=== PATIENT | female | born 1980 | race Two or more races ===

== ENCOUNTER 2019-05-26 14:46 | Observation (INO) | payer MEDICAID ==
[~2019-05-26] VITALS: Ht 160 cm; Wt 78.0 kg
[2019-05-26] MEDS ORDERED: PREN1TAB78 MT (15:27)
== END 2019-05-26 17:40 | disposition home or self-care (01) ==
LOC: 8 EST LDRP 14:46
PROVIDERS: ADMIT Obstetrics & Gynecology; ATTEND Obstetrics & Gynecology
DX: O62.9 Abnormality of forces of labor, unspecified (principal); O46.93 Antepartum hemorrhage, unspecified, third trimester; Z3A.38 38 weeks gestation of pregnancy
CPT/HCPCS: 76805; 99281; G0378

== ENCOUNTER 2019-05-27 03:12 | Inpatient (IN) | payer MEDICAID ==
[~2019-05-27] VITALS: Ht 160 cm; Wt 78.0 kg
[~2019-05-27 03:12] MED LIST: PREN1TAB78 MT
[2019-05-27] MEDS ORDERED: DEXT 5%/LR + PITOCIN 20UNITS/L 1,000 ML IV SCH ×2 (03:56→05:32)
[2019-05-27] MEDS ORDERED: LACTATED RINGERS 500ML 500 ML IV SCH (03:56)
[2019-05-27] MEDS ORDERED: LIDOCAINE HCL 1% 20ML VIAL (Pyxis) INJ INFIL SCH (04:00)
[2019-05-27] MEDS ORDERED: BUTORPHANOL TARTRATE 2 MG/ML VIAL IV PRN (04:00)
[2019-05-27] MEDS ORDERED: NALOXONE HCL 0.4 MG/ML 1ML VIAL IM PRN (04:00)
[2019-05-27] MEDS ORDERED: CARBOPROST TROMETHAMINE 250 MCG/ML AMPUL IM PRN (04:00)
[2019-05-27] MEDS ORDERED: MISOPROSTOL 100MCG TABLET VG SCH (04:00)
[2019-05-27] MEDS ORDERED: METHYLERGONOVINE MALEATE 0.2 MG/ML IM PRN (04:00)
[2019-05-27] MEDS ORDERED: PENICILLIN G POTASSIUM 5 MMU in DEXT 5% WATER 100 ML IV SCH (04:00)
[2019-05-27 05:13] LABS: CLARITY URINE CLEAR (CLEAR); COLOR URINE YELLOW (YELLOW); KETONES URINE NEGATIVE (NEGATIVE); LEUKOCYTE ESTERASE URINE TRACE (NEGATIVE); NITRITE URINE NEGATIVE (NEGATIVE); OCCULT BLOOD URINE 2+ (NEGATIVE); PH URINE 6.5 (4.5-8.0); PROTEIN URINE NEGATIVE (NEGATIVE); SPECIFIC GRAVITY URINE 1.004 (1.005-1.030); UROBILINOGEN URINE 0.2 E.U./dL (0.2-1.0)
[2019-05-27 05:15] LABS: BASOPHILS % 0.2 % (0.0-2.0); EOSINOPHILS % 0.5 % (0.0-5.0); HEMOGLOBIN. 11.1 g/dL (12.0-16.0); LYMPHOCYTES % 22.2 % (20.0-50.0); MEAN CORPUSCULAR HEMOGLOBIN 27.9 pg (28.0-32.0); MEAN CORPUSCULAR VOLUME 83.2 fL (81.0-99.0); MEAN PLATELET VOLUME 9.5 fl (7.4-10.4); MONOCYTES % 4.6 % (2.0-8.0); NEUTROPHILS % 72.5 % (40.0-76.0); PLATELET 185 x1000/uL (130-400); RED BLOOD CELL COUNT 3.97 mill/uL (4.2-5.4); RED CELL DISTRIBUTION WIDTH 14.3 % (11.6-14.6)
[2019-05-27 05:39] LABS: INR 0.9; PARTIAL THROMBOPLASTIN TIME 26.8 sec (23.4-31.0); PROTHROMBIN TIME 9.7 sec (9.6-11.0)
[2019-05-27] MEDS ORDERED: BISACODYL 10MG SUPP PR PRN (05:45)
[2019-05-27] MEDS ORDERED: LANOLIN OINT 7GM TUBE TOP PRN (05:45)
[2019-05-27] MEDS ORDERED: ACETAMINOPHEN WITH CODEINE 300/30MG TABLET PO PRN (05:45)
[2019-05-27] MEDS ORDERED: HEMORRHOIDAL SUPP PR PRN (05:45)
[2019-05-27] MEDS ORDERED: RHO(D) IMMUNE GLOBULIN 300 MCG/SYR IM PRN (05:45)
[2019-05-27] MEDS ORDERED: GLYCERIN/WITCH HAZEL LEAF MEDICATED PAD TOP PRN (05:45)
[2019-05-27] MEDS ORDERED: IBUPROFEN 400MG TABLET PO PRN (05:45)
[2019-05-27 06:02] LABS: *AMPHETAMINES SCREEN URINE NEGATIVE (NEGATIVE); *BARBITURATES SCREEN URINE NEGATIVE (NEGATIVE); *BENZODIAZEPINES SCREEN URINE NEGATIVE (NEGATIVE)
[2019-05-27 06:03] LABS: *COCAINE SCREEN URINE NEGATIVE (NEGATIVE); METHADONE URINE SCREEN NEGATIVE (NEGATIVE); OPIATES URINE SCREEN NEGATIVE (NEGATIVE)
[2019-05-27 06:04] LABS: CANNABINOID URINE SCREEN NEGATIVE (NEGATIVE); PHENCYCLIDINE URINE SCREEN NEGATIVE (NEGATIVE)
[2019-05-27 06:20] LABS: HEPATITIS B SURFACE ANTIGEN NEGATIVE
[2019-05-27 07:55] VITALS: BP 115/69
[2019-05-27] MEDS ORDERED: PENICILLIN G POTASSIUM 2.5 MMU in DEXTROSE 5% WATER 50 ML IV SCH (08:00)
[2019-05-27] MEDS: MAGNESIUM/ALUMINUM HYDROXIDE/SIMETHICONE 30ML UDC PO SCH ×4 (08:23→21:19)
[2019-05-27] MEDS: SIMETHICONE 80MG TABLET CHEW PO SCH ×4 (08:23→21:20)
[2019-05-27] MEDS: PRENATAL VIT/FE FUMARATE/FA TABLET PO SCH (08:49)
[2019-05-27 08:55] VITALS: BP 110/62
[2019-05-27] MEDS: ACETAMINOPHEN WITH CODEINE 300/30MG TABLET PO PRN (15:22)
[2019-05-27 15:28] VITALS: BP 114/63
[2019-05-27] MEDS: DOCUSATE SODIUM 100MG CAPSULE PO SCH (21:18)
[2019-05-28 07:27] LABS: BASOPHILS % 0.3 % (0.0-2.0); EOSINOPHILS % 1.3 % (0.0-5.0); HEMATOCRIT. 31.4 % (36.0-48.0); HEMOGLOBIN. 10.6 g/dL (12.0-16.0); LYMPHOCYTES % 31.8 % (20.0-50.0); MEAN CORPUSCULAR HEMOGLOBIN 28.3 pg (28.0-32.0); MEAN CORPUSCULAR VOLUME 84.2 fL (81.0-99.0); MEAN PLATELET VOLUME 9.7 fl (7.4-10.4); MONOCYTES % 4.7 % (2.0-8.0); NEUTROPHILS % 61.9 % (40.0-76.0); PLATELET 172 x1000/uL (130-400); RED BLOOD CELL COUNT 3.73 mill/uL (4.2-5.4); RED CELL DISTRIBUTION WIDTH 14.4 % (11.6-14.6)
[2019-05-28 08:00] VITALS: BP 113/70
[2019-05-28] MEDS: FERROUS SULFATE 325MG TABLET PO SCH ×3 (08:43→17:43)
[2019-05-28] MEDS: PRENATAL VIT/FE FUMARATE/FA TABLET PO SCH (08:43)
[2019-05-28] MEDS: SIMETHICONE 80MG TABLET CHEW PO SCH ×4 (08:43→21:38)
[2019-05-28] MEDS: MAGNESIUM/ALUMINUM HYDROXIDE/SIMETHICONE 30ML UDC PO SCH ×4 (08:43→21:39)
[2019-05-28] MEDS: ACETAMINOPHEN WITH CODEINE 300/30MG TABLET PO PRN (14:53)
[2019-05-28 14:59] VITALS: BP 108/61
[2019-05-28 19:50] VITALS: BP 105/61
[2019-05-28] MEDS: DOCUSATE SODIUM 100MG CAPSULE PO SCH (21:38)
[2019-05-29 04:10] VITALS: BP 102/50
[2019-05-29] MEDS ORDERED: IBUP-2028 PO (07:11)
[2019-05-29] MEDS ORDERED: FERR325T23 PO (07:11)
[2019-05-29 07:45] VITALS: BP 110/78
== END 2019-05-29 11:05 | disposition home or self-care (01) | DRG 560 ==
LOC: OBSVTOIN 03:12 → 8 EST LDRP 03:12 → 8EST 08:23
PROVIDERS: ADMIT Obstetrics & Gynecology; ATTEND Obstetrics & Gynecology
PROC: 10E0XZZ Delivery of Products of Conception, External Approach (ICD-10-PCS; principal; 2019-05-27)
DX: O99.02 Anemia complicating childbirth (principal); D64.9 Anemia, unspecified; Z3A.38 38 weeks gestation of pregnancy; Z37.0 Single live birth
CPT/HCPCS: 36415; 80305; 81003; 85025; 86592; 86703; 86762; 86850; 86900; 87340; 99281; G0378; J0595; J2540; J2590; J3490; J7060

== ENCOUNTER 2021-05-08 16:26 | Emergency (ER) | payer MEDICAID ==
[~2021-05-08] VITALS: Ht 157.5 cm; Wt 68.0 kg
[~2021-05-08 16:26] MED LIST changes: +FERR325T23 PO; +IBUP-2028 PO
[2021-05-08 17:01] VITALS: BP 134/85
[2021-05-08] MEDS ORDERED: VISCOUS LIDOCAINE 2% 15 ML UDC PO STA (17:02)
[2021-05-08] MEDS ORDERED: MAGNESIUM/ALUMINUM HYDROXIDE/SIMETHICONE 30ML UDC PO STA (17:02)
[2021-05-08] MEDS ORDERED: METOCLOPRAMIDE HCL 10MG/2ML VIAL IV STA (17:02)
[2021-05-08 18:30] LABS: BASOPHILS % 0.4 % (0.0-2.0); EOSINOPHILS % 0.7 % (0.0-5.0); HEMATOCRIT. 41.6 % (36.0-48.0); HEMOGLOBIN. 13.7 g/dL (12.0-16.0); MEAN CORPUSCULAR HEMOGLOBIN 29.1 pg (28.0-32.0); MEAN CORPUSCULAR VOLUME 88.5 fL (81.0-99.0); MEAN PLATELET VOLUME 8.4 fl (7.4-10.4); MONOCYTES % 3.7 % (2.0-8.0); NEUTROPHILS % 71.2 % (40.0-76.0); PLATELET 290 x1000/uL (130-400); RED CELL DISTRIBUTION WIDTH 12.8 % (11.6-14.6)
[2021-05-08 18:36] LABS: CHLORIDE 106 mEq/L (98-107)
[2021-05-08] MEDS ORDERED: ACETAMINOPHEN 325MG TABLET PO ONE (23:45)
[2021-05-09 00:04] LABS: CLARITY URINE CLEAR (CLEAR); COLOR URINE DARK YELLOW (YELLOW); KETONES URINE 2+ (NEGATIVE); LEUKOCYTE ESTERASE URINE 1+ (NEGATIVE); NITRITE URINE NEGATIVE (NEGATIVE); OCCULT BLOOD URINE NEGATIVE (NEGATIVE); PROTEIN URINE NEGATIVE (NEGATIVE); SPECIFIC GRAVITY URINE 1.018 (1.005-1.030); UROBILINOGEN URINE 0.2 E.U./dL (0.2-1.0)
[2021-05-09] MEDS ORDERED: CEPHALEXIN 250MG CAPSULE PO ONE (01:45)
[2021-05-09] MEDS ORDERED: CEPH500T MT (02:09)
== END 2021-05-09 02:44 | disposition home or self-care (01) ==
LOC: ER 16:26
DX: O26.891 Other specified pregnancy related conditions, first trimester (principal); N12 Tubulo-interstitial nephritis, not specified as acute or chronic; Z3A.09 9 weeks gestation of pregnancy
CPT/HCPCS: 36415; 71045; 76705; 76801; 80053; 81003; 81025; 83880; 84484; 85025; 93005; 99285

== ENCOUNTER 2021-09-19 18:16 | Emergency (ER) | payer MEDICAID ==
[~2021-09-19] VITALS: Ht 157.5 cm; Wt 77.9 kg
[~2021-09-19 18:16] MED LIST changes: +CEPH500T MT
[2021-09-19 19:25] VITALS: BP 132/73
[2021-09-19 20:07] LABS: CHLORIDE 108 mEq/L (98-107)
[2021-09-19 20:13] LABS: BASOPHILS % 0.1 % (0.0-2.0); EOSINOPHILS % 0.4 % (0.0-5.0); HEMATOCRIT. 32.4 % (36.0-48.0); HEMOGLOBIN. 10.7 g/dL (12.0-16.0); LYMPHOCYTES % 11.5 % (20.0-50.0); MEAN CORPUSCULAR HEMOGLOBIN 27.1 pg (28.0-32.0); MEAN CORPUSCULAR VOLUME 82.4 fL (81.0-99.0); MEAN PLATELET VOLUME 9.1 fl (7.4-10.4); MONOCYTES % 6.2 % (2.0-8.0); NEUTROPHILS % 81.8 % (40.0-76.0); PLATELET 213 x1000/uL (130-400); RED BLOOD CELL COUNT 3.93 mill/uL (4.2-5.4); RED CELL DISTRIBUTION WIDTH 13.5 % (11.6-14.6)
[2021-09-19 20:28] LABS: CLARITY URINE CLOUDY (CLEAR); COLOR URINE YELLOW (YELLOW); KETONES URINE NEGATIVE (NEGATIVE); LEUKOCYTE ESTERASE URINE 3+ (NEGATIVE); NITRITE URINE NEGATIVE (NEGATIVE); OCCULT BLOOD URINE TRACE (NEGATIVE); PROTEIN URINE NEGATIVE (NEGATIVE); SPECIFIC GRAVITY URINE 1.007 (1.005-1.030); UROBILINOGEN URINE 0.2 E.U./dL (0.2-1.0)
[2021-09-19] MEDS ORDERED: SODIUM CHLORIDE 0.9% 1,000 ML IV ONE (20:30)
[2021-09-19 20:32] LABS: B-HCG QUANTITATIVE 16214 mIU/mL (<3)
[2021-09-19] MEDS ORDERED: CEPHALEXIN 250MG CAPSULE PO ONE (22:15)
[2021-09-19] MEDS ORDERED: CEPH250C2 MT (22:18)
== END 2021-09-19 22:41 | disposition home or self-care (01) ==
LOC: ER 18:26
DX: N39.0 Urinary tract infection, site not specified (principal)
CPT/HCPCS: 36415; 80053; 81003; 84702; 85025; 86850; 86900; 87426; 96360; 99283

== ENCOUNTER 2021-12-08 15:28 | Inpatient (IN) | payer MEDICAID, OTHER ==
[~2021-12-08] VITALS: Ht 165.1 cm; Wt 88.5 kg
[~2021-12-08 15:28] MED LIST changes: +CEPH250C2 MT
[2021-12-08] MEDS ORDERED: LACTATED RINGERS 1,000 ML IV SCH (16:30)
[2021-12-08] MEDS ORDERED: METHYLERGONOVINE MALEATE 0.2 MG/ML IM PRN (16:30)
[2021-12-08] MEDS ORDERED: LIDOCAINE HCL 1% 20ML VIAL (Pyxis) INJ INFIL SCH (16:30)
[2021-12-08] MEDS ORDERED: OXYTOCIN 30 UNITS/500ML NS PMX 500 ML IV SCH (16:45)
[2021-12-08] MEDS ORDERED: RHO(D) IMMUNE GLOBULIN 300 MCG/SYR IM PRN (16:45)
[2021-12-08] MEDS ORDERED: LANOLIN OINT 7GM TUBE TOP PRN (16:45)
[2021-12-08] MEDS ORDERED: GLYCERIN/WITCH HAZEL LEAF MEDICATED PAD TOP PRN (16:45)
[2021-12-08] MEDS ORDERED: OXYCODONE HCL/ACETAMINOPHEN 5/325MG TABLET PO PRN (16:45)
[2021-12-08] MEDS ORDERED: HEMORRHOIDAL SUPP PR PRN (16:45)
[2021-12-08] MEDS ORDERED: DIPHENHYDRAMINE 25MG CAPSULE PO PRN (16:45)
[2021-12-08] MEDS ORDERED: BISACODYL 10MG SUPP PR PRN (16:45)
[2021-12-08] MEDS ORDERED: IBUPROFEN 400MG TABLET PO PRN (16:45)
[2021-12-08] MEDS: OXYTOCIN 30 UNITS/500ML NS PMX 500 ML IV SCH ×2 (17:03→17:05)
[2021-12-08 17:12] LABS: CLARITY URINE CLEAR (CLEAR); COLOR URINE YELLOW (YELLOW); KETONES URINE 2+ (NEGATIVE); LEUKOCYTE ESTERASE URINE TRACE (NEGATIVE); NITRITE URINE POSITIVE (NEGATIVE); OCCULT BLOOD URINE 1+ (NEGATIVE); PROTEIN URINE 2+ (NEGATIVE); SPECIFIC GRAVITY URINE 1.019 (1.005-1.030)
[2021-12-08 17:14] LABS: BASOPHILS % 0.1 % (0.0-2.0); EOSINOPHILS % 0.3 % (0.0-5.0); HEMATOCRIT. 31.7 % (36.0-48.0); HEMOGLOBIN. 9.8 g/dL (12.0-16.0); LYMPHOCYTES % 17.4 % (20.0-50.0); MEAN CORPUSCULAR HEMOGLOBIN 22.6 pg (28.0-32.0); MEAN CORPUSCULAR VOLUME 72.8 fL (81.0-99.0); MEAN PLATELET VOLUME 9.6 fl (7.4-10.4); MONOCYTES % 4.2 % (2.0-8.0); PLATELET 215 x1000/uL (130-400); RED BLOOD CELL COUNT 4.35 mill/uL (4.2-5.4)
[2021-12-08 17:23] LABS: INR 0.9; PARTIAL THROMBOPLASTIN TIME 26.7 sec (23.4-31.0); PROTHROMBIN TIME 10.1 sec (9.6-11.0)
[2021-12-08 17:26] LABS: *AMPHETAMINES SCREEN URINE NEGATIVE (NEGATIVE); *BARBITURATES SCREEN URINE NEGATIVE (NEGATIVE); *BENZODIAZEPINES SCREEN URINE NEGATIVE (NEGATIVE); *COCAINE SCREEN URINE NEGATIVE (NEGATIVE); CANNABINOID URINE SCREEN NEGATIVE (NEGATIVE); METHADONE URINE SCREEN NEGATIVE (NEGATIVE); OPIATES URINE SCREEN NEGATIVE (NEGATIVE); PHENCYCLIDINE URINE SCREEN NEGATIVE (NEGATIVE)
[2021-12-08 17:58] LABS: HEPATITIS B SURFACE ANTIGEN NEGATIVE
[2021-12-08 20:00] VITALS: BP 132/86
[2021-12-08] MEDS: MAGNESIUM/ALUMINUM HYDROXIDE/SIMETHICONE 30ML UDC PO SCH (21:07)
[2021-12-08] MEDS: SIMETHICONE 80MG TABLET CHEW PO SCH (21:07)
[2021-12-08] MEDS: IBUPROFEN 800MG TABLET PO PRN (21:08)
[2021-12-08] MEDS: DOCUSATE SODIUM 100MG CAPSULE PO SCH (21:08)
[2021-12-09 04:48] VITALS: BP 115/70
[2021-12-09 08:00] VITALS: BP 110/62
[2021-12-09] MEDS: IBUPROFEN 800MG TABLET PO PRN ×2 (09:38→17:51)
[2021-12-09] MEDS: NITROFURANTOIN 100MG M/M CAPSULE PO SCH ×2 (09:38→21:31)
[2021-12-09] MEDS: PRENATAL VIT/FE FUMARATE/FA TABLET PO SCH (09:39)
[2021-12-09] MEDS: FERROUS SULFATE 325MG TABLET PO SCH ×2 (09:39→17:53)
[2021-12-09] MEDS: MAGNESIUM/ALUMINUM HYDROXIDE/SIMETHICONE 30ML UDC PO SCH ×3 (09:39→21:26)
[2021-12-09 11:36] LABS: BASOPHILS % 0.3 % (0.0-2.0); EOSINOPHILS % 0.2 % (0.0-5.0); HEMATOCRIT. 28.5 % (36.0-48.0); HEMOGLOBIN. 9.1 g/dL (12.0-16.0); LYMPHOCYTES % 17.5 % (20.0-50.0); MEAN CORPUSCULAR HEMOGLOBIN 23.2 pg (28.0-32.0); MEAN CORPUSCULAR VOLUME 72.4 fL (81.0-99.0); MEAN PLATELET VOLUME 9.8 fl (7.4-10.4); MONOCYTES % 3.6 % (2.0-8.0); NEUTROPHILS % 78.4 % (40.0-76.0); PLATELET 182 x1000/uL (130-400); RED BLOOD CELL COUNT 3.93 mill/uL (4.2-5.4)
[2021-12-09] MEDS: SIMETHICONE 80MG TABLET CHEW PO SCH ×3 (13:00→18:00)
[2021-12-09 15:00] VITALS: BP 124/72
[2021-12-09] MEDS: DOCUSATE SODIUM 100MG CAPSULE PO SCH (21:26)
[2021-12-09 22:00] VITALS: BP 120/78
[2021-12-10 05:22] VITALS: BP 124/78
[2021-12-10 07:30] VITALS: BP 123/78
[2021-12-10] MEDS: NITROFURANTOIN 100MG M/M CAPSULE PO SCH (08:36)
[2021-12-10] MEDS: MAGNESIUM/ALUMINUM HYDROXIDE/SIMETHICONE 30ML UDC PO SCH (08:36)
[2021-12-10] MEDS: PRENATAL VIT/FE FUMARATE/FA TABLET PO SCH (08:36)
[2021-12-10] MEDS: FERROUS SULFATE 325MG TABLET PO SCH (08:36)
[2021-12-10] MEDS: IBUPROFEN 800MG TABLET PO PRN (08:38)
== END 2021-12-10 13:20 | disposition home or self-care (01) | DRG 560 ==
LOC: OBSVTOIN 15:28 → 8 EST LDRP 15:28 → 8EST 18:30
PROVIDERS: ADMIT Specialist; ATTEND Specialist
PROC: 10E0XZZ Delivery of Products of Conception, External Approach (ICD-10-PCS; principal; 2021-12-08)
DX: O99.02 Anemia complicating childbirth (principal); Z37.0 Single live birth; O23.43 Unspecified infection of urinary tract in pregnancy, third trimester; O99.214 Obesity complicating childbirth; N39.0 Urinary tract infection, site not specified; Z3A.38 38 weeks gestation of pregnancy; Z20.822 Contact with and (suspected) exposure to COVID-19
CPT/HCPCS: 36415; 76815; 80305; 81003; 85025; 86592; 86703; 86762; 86850; 86900; 87340; 87426; 99281; J7120; J2590

== ENCOUNTER 2022-07-17 19:29 | Emergency (ER) | payer OTHER ==
[~2022-07-17] VITALS: Ht 157.5 cm; Wt 74.0 kg
[2022-07-17] MEDS ORDERED: IBUPROFEN 600MG TABLET PO ONE (22:45)
[2022-07-17 23:01] VITALS: BP 140/90
[2022-07-17] MEDS ORDERED: NAPR-1176 MT (23:02)
== END 2022-07-18 00:10 | disposition home or self-care (01) ==
LOC: ER 19:29
DX: S20.214A Contusion of middle front wall of thorax, initial encounter (principal); S16.1XXA Strain of muscle, fascia and tendon at neck level, initial encounter; S39.012A Strain of muscle, fascia and tendon of lower back, initial encounter; R51.9 Headache, unspecified; W22.11XA Striking against or struck by driver side automobile airbag, initial encounter; R03.0 Elevated blood-pressure reading, without diagnosis of hypertension; V49.49XA Driver injured in collision with other motor vehicles in traffic accident, initial encounter; Y93.89 Activity, other specified; Y92.488 Other paved roadways as the place of occurrence of the external cause
CPT/HCPCS: 71045; 81025; 99283